=== PATIENT | female | born 1965 | race Two or more races ===

== ENCOUNTER 2017-11-18 22:51 | Inpatient (IN) | payer BC ==
[~2017-11-18] VITALS: Wt 5.0 kg
[2017-11-19] MEDS ORDERED: EDLUAR10 MG (01:39)
[2017-11-19] MEDS ORDERED: BANOPHEN50 MG (01:39)
[2017-11-19] MEDS ORDERED: PANADOL EXTRA500 MG (01:39)
[2017-11-19] MEDS ORDERED: VIIBRYD10 MG (01:41)
[2017-11-19] MEDS ORDERED: CLONAZEPAM0.5 M1 (01:42)
[2017-11-26] MEDS ORDERED: LOSARTAN-HCTZ1 EACH PO (16:11)
[2017-11-26] MEDS ORDERED: RISPERDAL1 MG PO (16:11)
[2017-11-26] MEDS ORDERED: RESTORIL15 MG PO (16:11)
[2017-11-26] MEDS ORDERED: ZOLOFT50 MG PO (16:11)
== END 2017-11-26 16:46 | disposition home or self-care (01) | DRG 643 ==
LOC: ER 22:51 → ICU-2 11-19 09:51 → ICU 11-19 09:51 → MEDI 11-25 14:11
PROC: 4A033R1 Measurement of Arterial Saturation, Peripheral, Percutaneous Approach (ICD-10-PCS; principal; 2017-11-19)
PROC: BW40ZZZ Ultrasonography of Abdomen (ICD-10-PCS; 2017-11-19)
PROC: 30233R1 Transfusion of Nonautologous Platelets into Peripheral Vein, Percutaneous Approach (ICD-10-PCS; 2017-11-19)
PROC: 02HV33Z Insertion of Infusion Device into Superior Vena Cava, Percutaneous Approach (ICD-10-PCS; 2017-11-22)
PROC: 30233N1 Transfusion of Nonautologous Red Blood Cells into Peripheral Vein, Percutaneous Approach (ICD-10-PCS; 2017-11-22)
PROC: BW40ZZZ Ultrasonography of Abdomen (ICD-10-PCS; 2017-11-24)
DX: E16.0 Drug-induced hypoglycemia without coma (principal); G93.41 Metabolic encephalopathy; N17.8 Other acute kidney failure; E87.2 Acidosis; M62.82 Rhabdomyolysis; F32.3 Major depressive disorder, single episode, severe with psychotic features; K71.10 Toxic liver disease with hepatic necrosis, without coma; E87.6 Hypokalemia; D69.59 Other secondary thrombocytopenia; K70.40 Alcoholic hepatic failure without coma; T39.1X2A Poisoning by 4-Aminophenol derivatives, intentional self-harm, initial encounter; T51.0X2A Toxic effect of ethanol, intentional self-harm, initial encounter; D64.89 Other specified anemias; Z78.1 Physical restraint status